=== PATIENT | male | born 2000 | race Caucasian/White ===

== ENCOUNTER 2021-09-25 16:55 | Emergency (ER) ==
[~2021-09-25] VITALS: Ht 170.2 cm; Wt 76.4 kg
[2021-09-25 17:01] VITALS: BP 116/64
== END 2021-09-25 17:46 | disposition left against medical advice (07) ==
LOC: M ED 16:55
DX: Z53.21 Procedure and treatment not carried out due to patient leaving prior to being seen by health care provider (principal)

== ENCOUNTER → 2022-03-28 | Outpatient (REF) | LOC: M PLAIMG 10:41 | PROVIDERS: ATTEND Internal Medicine | DX: R06.02 Shortness of breath (principal) ==

== ENCOUNTER → 2022-05-22 | Outpatient (CLI) | payer OTHER | LOC: M PLAIMG 08:16 | PROVIDERS: ATTEND Physician Assistant | DX: M54.59 Other low back pain (principal) ==